=== PATIENT | female | born 1985 | race African-American/Black ===

== ENCOUNTER 2017-06-27 19:20 | Emergency (ER) | payer SELFPAY ==
[~2017-06-27] VITALS: Ht 165.1 cm; Wt 70.3 kg
[2017-06-27 19:40] VITALS: BP 128/73
[2017-06-27] MEDS ORDERED: IBUPROFEN 600 MG TABLET PO ONE ×2 (20:59→21:00)
[2017-06-27] MEDS ORDERED: ACETAMINOPHEN ES 500 MG TABLET ONE (20:59)
[2017-06-27] MEDS ORDERED: ACETAMINOPHEN 325 MG TABLET PO ONE (21:00)
== END 2017-06-27 21:06 | disposition home or self-care (01) ==
LOC: ER 19:22
DX: S16.1XXA Strain of muscle, fascia and tendon at neck level, initial encounter (principal); X58.XXXA Exposure to other specified factors, initial encounter; Y93.89 Activity, other specified; Y92.89 Other specified places as the place of occurrence of the external cause; Y99.8 Other external cause status
CPT/HCPCS: A4606; Z7610